=== PATIENT | male | born 1965 ===

== ENCOUNTER 2017-01-20 13:28 | Emergency (ER) | payer SELFPAY ==
[2017-01-20 13:45] VITALS: BP 140/80
[2017-01-20] MEDS ORDERED: Aspirin Low Dose CHEW TAB* 81 MG PO ONE (14:00)
--- NOTE | 2017-01-20 14:09 | UC ---
Cardiac HPI - HPI Summary HPI Summary: left side chest pain and pressure x 3 days pain was at rest, constant, no sob, no diaphoresis, no n/v/d/c - History of Current Complaint Chief Complaint: UCChestPain Stated Complaint: CHEST PAIN X2 DAYS Time Seen by Provider: 01/20/17 13:42 Hx Obtained From: Patient Onset/Duration: Gradual Onset, Lasting Days - 3, Still Present Timing: Constant Initial Severity: Moderate Current Severity: Moderate Chest Pain Location: Left Lateral Character: Pressure/Squeezing Aggravating: Nothing Alleviating: Nothing Associated Signs & Symptoms: Positive: Chest Pain. Negative: Vision Changes, Anxiety, Recent Stress, Headaches, Numbness, Tingling, Weakness, Dizziness, SOB , Swelling, Syncope, Fever, Diaphoresis, Nausea/Vomiting, Palpitations, Cough, Hemoptysis, Back Pain, Abdominal Pain, Calf Pain/Swelling - Risk Factors Pulmonary Embolism Risk Factors: Smoking Cardiac Risk Factors: Hypertension, Smoking - Allergy/Home Medications Allergies/Adverse Reactions: Allergies Allergy/AdvReac Type Severity Reaction Status Date / Time No Known Allergies Allergy Verified 01/20/17 13:45 Home Medications: Home Medications Losartan/HCTZ 100/25 (NF) [Hyzaar 100/25 (NF)] 1 tab PO DAILY 01/20/17 [History Confirmed 01/20/17] Tumeric 1 tab PO DAILY 01/20/17 [History] PMH/Surg Hx/FS Hx/Imm Hx Cardiovascular History Of: Reports: Hypertension - ON MEDS - Surgical History Surgical History: Yes Surgery Procedure, Year, and Place: 2006, [facility]. CARPAL TUNNEL LEFT, 2004 - Family History Known Family History: Positive: Diabetes - mother - Social History Alcohol Use: Rare Substance Use Type: None Smoking Status (MU): Former Smoker Amount Used/How Often: 1/2 PACK A DAY Have You Smoked in the Last Year: No When Did the Patient Quit Smoking/Using Tobacco: 2011 Review of Systems Constitutional: Negative Skin: Negative Eyes: Negative ENT: Negative Respiratory: Negative Cardiovascular: Chest Pain Gastrointestinal: Negative All Other Systems Reviewed And Are Negative: Yes Physical Exam Triage Information Reviewed: Yes Appearance: No Pain Distress, Obese Vital Signs: Initial Vital Signs Temp 98.4 F 01/20/17 13:38 Pulse 80 01/20/17 13:38 Resp 18 01/20/17 13:38 BP 140/80 01/20/17 13:38 Pulse Ox 98 01/20/17 13:38 Vital Signs Reviewed: Yes Eyes: Positive: Conjunctiva Clear ENT: Positive: Normal ENT inspection, Hearing grossly normal, Pharynx normal Neck: Positive: Supple, Nontender, No Lymphadenopathy Respiratory: Positive: Chest non-tender, Lungs clear, Normal breath sounds Cardiovascular: Positive: RRR, No Murmur, Pulses Normal Abdomen Description: Positive: Soft. Negative: CVA Tenderness (R), CVA Tenderness (L), Distended, Guarding Bowel Sounds: Positive: Present Musculoskeletal: Positive: Strength Intact, ROM Intact, No Edema Neurological: Positive: Alert. Negative: Fatigued, Lethargic Skin Exam: Normal Diagnostics - EKG Cardiac Rate: NL Cardiac Rhythm: Sinus: Normal ST Segment: Normal - Assessment/Plan Course Of Treatment: 51 y/o male with hx of obesity , HTN ,. 3 days hx of left sided chest pain , no ST elevation or depression on the EKG. will have the pt. go to [facility] ED for eval of Chest pain and to R/O any acute cardiac event. spoke to Ayana ELAM about the pt. pt. is going with private car - Clinical Impression Provider Diagnoses: atypical chest pain Discharge - Discharge Plan Condition: Fair Disposition: AGAINST MEDICAL ADVICE Referrals: Rica Abel MD [Primary Care Provider] -
== END 2017-01-20 14:12 | disposition left against medical advice (07) ==
LOC: UCCORT 13:28
DX: R07.89 Other chest pain (principal); I10 Essential (primary) hypertension; E66.9 Obesity, unspecified; Z87.891 Personal history of nicotine dependence
CPT/HCPCS: 93005; 99203; A9270-GY; G0463